=== PATIENT | male | born 1935 | race Caucasian/White ===

== ENCOUNTER 2017-11-08 15:43 | Emergency (ER) | payer MEDICARE ==
[~2017-11-08] VITALS: Ht 182.8 cm; Wt 63.5 kg
[~2017-11-08 15:43] MED LIST: AMLODIPINE BESY1 TAB PO; AMLODIPINE5 MG PO; ASPIR 8181 MG PO; ASPIRIN325 M2 PO; CIPROFLOXACIN500 MG PO; COREG12.5 M1 PO; COREG25 MG PO; LEVAQUIN750 M1 PO; LEVOFLOXACIN500 MG PO; LISINOPRIL20 MG PO; NORVASC10 MG PO; OMEPRAZOLE20 M2 PO; PREDNISONE10 MG PO; PROFERRIN PO; SIMVASTATIN80 MG PO
[2017-11-08] MEDS ORDERED: PEPCID20 MG PO (16:50)
== END 2017-11-09 01:56 | disposition home or self-care (01) ==
LOC: ED 15:43
DX: S52.532A Colles' fracture of left radius, initial encounter for closed fracture (principal); Z79.899 Other long term (current) drug therapy; Z79.82 Long term (current) use of aspirin; W00.0XXA Fall on same level due to ice and snow, initial encounter; Y93.89 Activity, other specified; Y92.89 Other specified places as the place of occurrence of the external cause; Y99.8 Other external cause status

== ENCOUNTER → 2018-01-19 | Outpatient (CLI) | payer MEDICARE ==
[~2018-01-19] MED LIST changes: +PEPCID20 MG PO
== END | disposition home or self-care (01) ==
LOC: CARD 15:19
DX: R94.31 Abnormal electrocardiogram [ECG] [EKG] (principal)

== ENCOUNTER 2019-01-16 16:54 | Inpatient (IN) | payer OTHER, MEDICARE ==
[~2019-01-16] VITALS: Ht 182.9 cm; Wt 59.0 kg
[~2019-01-16 16:54] MED LIST changes: +TRAZODONE50 MG PO; +VITAMIN D35000 UNIT PO
--- NOTE | 2019-01-16 17:00 | NUR ---
A 83yr old male, admitted to [facility], under the services of Dr. SONIA MESA,[facility] with a diagnosis of respiratory failure. Patient was compassionately extubated and discharged to hospice. This is the admit to hospice note. Chief complaint is increased work of breathing. Monitor intact. Hospice assessment complete. Patient repositioned for comfort. Vital signs taken and recorded. See assessment for past medical history, medications and allergies. HERB SURESH L
--- NOTE | 2019-01-16 17:20 | NUR ---
HR DROPPING TO 30'S. AGONAL RESPIRATIONS. FAMILY WITH PATIENT.
[2019-01-16 17:22] VITALS: BP 00/00
--- NOTE | 2019-01-16 17:22 | NUR ---
PT CEASED TO BREATHE, ASYSTOLIC. DR PHAN TO THE BEDSIDE.
--- NOTE | 2019-01-16 17:25 | NUR ---
HOSPICE NOTIFIED OF PT'S PASSING.
--- NOTE | 2019-01-16 17:32 | NUR ---
[facility] NOTIFIED OF PT'S .
--- NOTE | 2019-01-16 17:34 | NUR ---
EMOTIONAL SUPPORT TO FAMILY.
--- NOTE | 2019-01-16 17:39 | NUR ---
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 NO DONATIONS R/T HX DEMENTIA.
--- NOTE | 2019-01-16 19:11 | NUR ---
BODY TO [facility].
== END 2019-01-16 19:11 | disposition expired | DRG 683 ==
LOC: ICCU 16:54
PROVIDERS: ADMIT Internal Medicine
DX: N17.9 Acute kidney failure, unspecified (principal); M62.82 Rhabdomyolysis; R74.8 Abnormal levels of other serum enzymes; E87.6 Hypokalemia; R29.6 Repeated falls; E86.0 Dehydration; Z60.2 Problems related to living alone; Z87.01 Personal history of pneumonia (recurrent); Z87.81 Personal history of (healed) traumatic fracture; Z79.82 Long term (current) use of aspirin; Z79.899 Other long term (current) drug therapy